=== PATIENT | female | born 1935 | race Caucasian/White ===

== ENCOUNTER 2023-09-05 22:52 | Observation (INO) | payer OTHER, SELFPAY ==
[2023-09-05 16:48] VITALS: BMI 24.9
[2023-09-05 16:56] VITALS: BP 143/70
--- NOTE | 2023-09-05 18:42 | ED.GENMED ---
History of Present Illness
General
Chief Complaint: Fall
Source: patient
Exam Limitations: none
Time Seen by Provider: 09/05/23 18:14
History of Present Illness
History of Present Illness:
This is a 87 year old female that comes in with c/o fall. Josias that yesterday she fell in the bedroom between the bed and the end table. States that she hit the right rib area pretty hard. States that she also fell in the bathroom last night. States
that she just losses her balance. States that she must have laid on the floor most of the night as she was unable to get up. States that she finally made it to the bed. Denies any fever, chills, chest pain, SOB, abd pain, nausea, vomiting, diarrhea,
headache, dizziness, urinary burning.
Past History
Past History
ED Past Medical History: None; Negative Asthma, HTN, Hypercholesterolemia or NIDDM
ED Past Surgical History: Gynecological (Tubal) and Other (Brain aneurysm with shunt)
Social History
Tobacco: Non-smoker
Alcohol: Occasional
Drug: None
Personal:
Living: alone
Review of Systems
Review of Systems
All Other Systems: ROS reviewed and negative except as documented in HPI and ROS
Constitutional: Reports no symptoms; Denies fever or chills
EENT: Reports no symptoms
Respiratory: Reports no symptoms; Denies cough or trouble breathing
Cardiac: Reports no symptoms; Denies chest pain
ABD/GI: Reports no symptoms; Denies abdominal pain, nausea, vomiting or diarrhea
: Reports no symptoms; Denies dysuria, frequency or urgency
Musculoskeletal: Reports other (Right sided lower rib pain)
Skin: Reports no symptoms
Neurological: Reports no symptoms; Denies dizzy or headache
Psychiatric: Reports no symptoms
Phy Exam
General Physical Exam
General Presentation: no apparent distress
General age: appears stated age
General Skin: warm and dry
General Habitus: elderly
General Mental: alert
General Hydration: dry mucous membranes
ENT Exam
ENT Exam: TM's normal, pharynx normal and neck supple
Eye Exam
Eye Exam: EOMI
Cardiovascular Exam
Cardiovascular Exam: regular rate/rhythm, no edema and normal peripheral pulses
Pulmonary Exam
Pulmonary Exam: no respiratory distress, no rhonchi, no wheezing, no cough and other (Rales at bases)
Gastrointestinal Exam
Gastrointestinal Exam: normal bowel sounds, soft, no organomegaly, no pulsatile mass, non distended and tender (Slight tenderness RUQ with palpation)
Musculoskeletal Exam
Musculoskeletal Exam: full ROM, no edema and other (Right lower rib tenderness with palpation, Negative for cervical neck or shoulder tenderness with palpation. Negative discomfort with flexion of the knee's, inversion or eversion. )
Skin Exam
Skin Exam: normal color, warm/dry, no rash, no petechia and other (abrasion right knee)
Psychiatric Exam
Psychiatric Exam: normal mood/affect
Course
Orders/Labs/Results
Orders:
Orders
09/05/23 18:40
Acetaminophen [Tylenol] 1,000 mg PO NOW STA
Ribs, Right 3 View W/PA Chest [CR Ribs-right 3 Vw W/pa Chest*] Urgent
Comment:
Reason For Exam: fall, rib pain
09/05/23 18:41
CT Head W/o Iv Contrast Urgent
Comment:
Reason For Exam: falls
0.9% Sodium Chloride 500 ml [Nss] 500 ml IV BOLUS
09/05/23 19:17
CPK [Creatine Phosphokinase] Urgent
Complete Blood Count/With Diff Urgent
Comprehensive Metabolic Panel Urgent
09/05/23 20:36
Urinalysis Reflex To Culture Urgent
09/05/23 20:43
0.9% Sodium Chloride 500 ml [Nss] 500 ml IV BOLUS
09/05/23 21:02
COVID-19 Antigen Urgent
Source: Nasal Swab
Abnormal Lab Results
09/05/23 09/05/23
19:17 21:02
RBC 3.62 L 10^6/uL
(4.20-5.40)
Hgb 11.9 L g/dL
(12.0-16.0)
Hct 34.1 L %
(37.0-47.0)
MCH 32.9 H pg
(27.0-31.0)
Absolute Lymphs (auto) 1.1 L 10^3/uL
(1.2-3.4)
Absolute Monos (auto) 1.0 H 10^3/uL
(0.1-0.6)
Lymphocytes % 12.8 L %
(20.5-51.1)
Monocytes % 11.5 H %
(1.7-9.3)
BUN 24 H mg/dl
(7-17)
Glucose 124 H mg/dl
(70-99)
Creatine Kinase 798 H U/L
(30-135)
SARS-CoV-2 Antigen Positive A
(Negative)
09/05/23 19:17
09/05/23 19:17
H/H slightly low. Dehydration. Glucose nonfasting CPK elevation. Positive for COVID.
Vital Signs
Initial and Last Documented VS:
Initial Vital Signs
Temp Pulse BP Pulse Ox
98.8 F 83 143/70 95
09/05/23 16:56 09/05/23 16:56 09/05/23 16:56 09/05/23 16:56
Last Documented Vital Signs
Temp Pulse BP Pulse Ox
98.8 F 83 143/67 96
09/05/23 16:56 09/05/23 16:56 09/05/23 19:17 09/05/23 19:45
MDM/Problems Addressed
Differential Diagnosis Includes:
Frequent falls, UTI, Rhabdo
MDM/Problems Addressed:
This is a 87 year old female that comes in with c/o falls. State that she fell in the BR and then again in her bedroom. States that she was in between her bed and the night stand and hit the right lower ribs. State that this is the only pain that
she has. Patient was unable to get up and laid on the floor and at some point through the night she got into bed.
Will check labs, CT head. Rib series and medicate for pain.
Back into see patient and family. Explained that her blood work shows that she is dehydrated. CPK is elevated. Got patient OOB to the BR and she was very unsteady on her feet. States that she just feels weak. Will get Urine, check COVID. Family
states that this is not how she normally walks. If all negative will keep for weakness.
Into see patient and family again and explained that she is positive for COVID. Hospitalist notified about admission.
Chronic conditions affecting care:
NA
Acute Exacerbation and/or Progression of Chronic Illness:
NA
*Radiology
Radiology exam reviewed: radiology read reviewed (CT head-NO acute intracranial abnormality. Stable size of the ventricular systemt compared to the head CT from 04/23/2014. Some progession of chronic ischemic white matter changes. Chest and ribs-No
clear evident for an acute displaced right rib fracture)
*Pulse Oximetry
Patient hypoxic: no
*EKG
Interpreted by ED Provider?: NA
Rate: EKG- N/A
*Powder Line Repairer Interpretation
Rate: Powder Line Repairer- N/A
*Critical Care Note
Total Time (30-74mins, 75-104mins- exclusive of procedures): Not Applicable
ED Attending Note
-
Portions of this chart may have been created with voice recognition software.� Occasional wrong word or��sound alike� substitutions may have occurred due to the inherent limitations of voice recognition software.
Discharge Plan
Departure
Patient Disposition: Admit
Date of Disposition: 09/05/23
Time of Disposition: 21:37
Admit to: Med/Surg
Presentation/result/management discussed w/ accepting MD/DO: Hospitalist
Patient with high blood pressure during this ER visit?: Yes
Condition: Good
Discharge Problem:
Weakness, COVID
Referrals:
Chika Huntley MD [Family Provider] -
Interventions
Interventions:
*Risk Screen - Suicide Last Done: 09/05/23 20:24
*General Assessment Last Done: 09/05/23 20:24
*Neglect/Abuse Screening Last Done: 09/05/23 20:24
ED- Fall Risk Assessment Last Done: 09/05/23 20:22
*ED COVID-19 Vaccine History Last Done: 09/05/23 20:24
ED-Musculoskeletal Assessment Last Done: 09/05/23 20:22
ED- Neurological Assessment Last Done: 09/05/23 20:22
ED-Skin Assessment Last Done: 09/05/23 20:22
Discharge Date and Time
Print Language: SURINAMESE
[2023-09-05] MEDS: TYLENOL 1000 MG PO (19:02)
[2023-09-05] MEDS: NSS 500 IV ×2 (19:05→21:07)
[2023-09-05 19:17] VITALS: BP 143/67
[2023-09-05 19:23] LABS: % Basophils 0.8 % (0-2); % Eosinophils 0.7 % (0-6); % Immature Granulocytes 0.4 % (0-0.5); % Lymphocytes 12.8 % (20.5-51.1); % Monocytes 11.5 % (1.7-9.3); % Neutrophils 73.8 % (42.2-75.2); Absolute Basophils 0.1 10^3/uL (0-0.2); Absolute Eosinophils 0.1 10^3/uL (0-0.7); Absolute Lymphocytes 1.1 10^3/uL (1.2-3.4); Absolute Neutrophils 6.3 10^3/uL (1.4-6.5); Hematocrit 34.1 % (37.0-47.0); Hemoglobin 11.9 g/dL (12.0-16.0); Mean Corp Hgb Conc. 34.9 g/dL (33.0-37.0); Mean Corpuscular Hgb 32.9 pg (27.0-31.0); Mean Corpuscular Volume 94.2 fL (81.0-99.0); Mean Platelet Volume 9.4 fL (7.4-10.4); Nucleated Red Blood Cells % 0 %; Platelet Count 180 10^3/uL (130-400); Red Blood Cell Count 3.62 10^6/uL (4.20-5.40); Red Cell Dist. Width 12.5 % (11.5-14.5); White Blood Cell Count 8.5 10^3/uL (4.8-10.8)
[2023-09-05 19:39] LABS: ALT (SGPT) 20 U/L (0-35); AST (SGOT) 33 U/L (14-36); Albumin 4.3 g/dl (3.5-5.0); Alkaline Phosphatase 80 U/L (38-126); Blood Urea Nitrogen 24 mg/dl (7-17); Calcium 9.4 mg/dl (8.4-10.2); Carbon Dioxide 28 mmol/L (22-30); Chloride 101 mmol/L (98-107); Creatine Phosphokinase 798 U/L (30-135); Glucose 124 mg/dl (70-99); Potassium 3.9 mmol/L (3.5-5.1); Sodium 136 mmol/L (135-145); Total Bilirubin 0.5 mg/dl (0.2-1.3); Total Protein 7.2 g/dl (6.3-8.2); eGFR > 60.00
[2023-09-05 21:16] LABS: COVID-19 Antigen Positive (Negative)
--- NOTE | 2023-09-05 22:27 | HPS.HSE ---
Family Physician
-
Family Physician: Chika Huntley
Chief Complaint
-
fall
History of Present Illness
87-year-old female past medical history of dementia, anxiety/depression, hyperlipidemia, presenting with fall. Yesterday she fell in the bedroom and hit the right rib area pretty hard. He also fell in the bathroom last night. She thinks that she
may have laid on the floor most the night as she was unable to get up. She finally made it to the bed. She developed slight cough this morning. She has a little shortness of breath. She denies any fevers or chills, chest pain, abdominal pain,
nausea vomiting or diarrhea, headache, dizziness or urinary symptoms.
She drinks alcohol occasionally.
Medical History
Past Medical History
Past Medical History: Reports Other (dementia, anxiety/depression, hyperlipidemia,)
Past Surgical History: Reports None
Social History
Tobacco: Non-smoker
Alcohol: Occasional
Drug: None
Family History
Family History: Not pertinent
Allergies / Home Medications
Allergies reflects when Allergies were last updated in riskmethods.
Home Medications with original date entered in riskmethods
Allergy/Medication List:
Allergies
Allergy/AdvReac Type Severity Reaction Status Date / Time
No Known Allergies Allergy Unverified 07/21/19 15:35
Home Medications
aspirin 325 mg tablet 325 mg PO DAILY 09/05/23
buspirone 10 mg tablet 10 mg PO BID 09/05/23
cholecalciferol (vitamin D3) 25 mcg (1,000 unit) tablet 25 mcg PO DAILY 09/05/23
diphenhydramine 25 mg-acetaminophen 500 mg tablet (Tylenol PM Extra Strength) 1 tab PO HS 09/05/23
donepezil 5 mg tablet 5 mg PO HS 09/05/23
escitalopram oxalate 10 mg tablet 10 mg PO DAILY 09/05/23
therapeutic multivitamin 1 tab PO DAILY 09/05/23
Review of Systems
-
History Source: Patient
A 12 point ROS was completed and negative except as noted: Yes
Constitutional: Reports No Symptoms
EENT: Reports No Symptoms
Respiratory: Reports No Symptoms
Cardiac: Reports No Symptoms
Abdomen/GI: Reports No Symptoms
: Reports No Symptoms
Musculoskeletal: Reports No Symptoms
Skin: Reports No Symptoms
Neurological: Reports No Symptoms
Endocrine: Reports No Symptoms
Hematologic/Lymphatic: Reports No Symptoms
Psych: Reports No Symptoms
Physical Exam
Vital Signs
Vital Signs
Temp Pulse BP Pulse Ox
98.8 F 83 143/67 96
09/05/23 16:56 09/05/23 16:56 09/05/23 19:17 09/05/23 19:45
Physical Exam
General: Well Developed, Well Nourished and No Apparent Distress
HEENT: NormoCephalic, Moist mucous membranes and Atraumatic
Respiratory: Clear
Cardiac: S1/S2 and Regular Rhythm; No Murmur or Rub
GI: Soft, Non Tender, Non Distended and Normal Bowel Sounds; No Organomegaly
Rectal: Deferred by Provider
Musculoskeletal: No Clubbing, No Cyanosis and No Edema
Skin: No Rash
Neuro: Nonfocal/grossly intact
Laboratory Results
-
09/05/23 19:17
09/05/23 19:17
Laboratory Results
Total Bilirubin 0.5 mg/dl (0.2-1.3) 09/05/23 19:17
AST 33 U/L (14-36) 09/05/23 19:17
ALT 20 U/L (0-35) 09/05/23 19:17
Alkaline Phosphatase 80 U/L (38-126) 09/05/23 19:17
Data Reviewed
-
Lab Data: Labs Reviewed by me
Old Records: Reviewed
Impression/Plan
-
IMPRESSION:
PLAN:
# Ambulatory dysfunction/weakness/falls secondary to COVID
-CT head shows no acute abnormality
-CT ribs shows no evidence of rib fracture
-Not hypoxic
-PT/OT
# Rhabdomyolysis
-CK of 700
-IV fluids
Dementia
-Continue donepezil
Anxiety/depression
-Continue Lexapro, buspirone
Hyperlipidemia
DNR/DNI
DVT prophylaxis�heparin
Regular diet
[2023-09-05 23:46] VITALS: BP 158/69
[2023-09-05 23:48] VITALS: BMI 24.2
[2023-09-06] MEDS: NSS 1000 IV ×2 (00:06→13:14)
--- NOTE | 2023-09-06 01:01 | PTCARENOTE ---
Patient arrived from the ED via stretched at approximately 2330. Patient ambulated from stretcher to bed x1 assist - gait unsteady. Patient AAOx3, forgetful. VSS as documented. Assessment as documented. Patient oriented to room. Bed in lowest
position. Bed alarm in place for patient safety. Call castillo within reach.
[2023-09-06 01:52] LABS: Urine Albumin Negative (Neg - Trace); Urine Bilirubin Negative (Negative); Urine Character Clear (Clear); Urine Color Yellow; Urine Glucose Negative (Negative); Urine Ketone Negative (Negative); Urine Leukocyte Trace (Negative); Urine Nitrite Negative (Negative); Urine Occult Blood Negative (Negative); Urine Urobilinogen Negative (Neg - 1+)
[2023-09-06 02:18] LABS: Urine Bacteria Few (Negative); Urine Red Blood Cell 0-2 /HPF (0-2)
[2023-09-06 07:10] VITALS: BP 154/78
[2023-09-06 08:46] LABS: % Basophils 0.7 % (0-2); % Eosinophils 3.6 % (0-6); % Immature Granulocytes 0.4 % (0-0.5); % Lymphocytes 19.3 % (20.5-51.1); % Monocytes 12.7 % (1.7-9.3); % Neutrophils 63.3 % (42.2-75.2); Absolute Basophils 0.1 10^3/uL (0-0.2); Absolute Eosinophils 0.3 10^3/uL (0-0.7); Absolute Lymphocytes 1.4 10^3/uL (1.2-3.4); Absolute Monocytes 0.9 10^3/uL (0.1-0.6); Absolute Neutrophils 4.6 10^3/uL (1.4-6.5); Hematocrit 35.1 % (37.0-47.0); Mean Corp Hgb Conc. 34.2 g/dL (33.0-37.0); Mean Corpuscular Hgb 32.8 pg (27.0-31.0); Mean Corpuscular Volume 95.9 fL (81.0-99.0); Mean Platelet Volume 9.7 fL (7.4-10.4); Nucleated Red Blood Cells % 0 %; Platelet Count 176 10^3/uL (130-400); Red Blood Cell Count 3.66 10^6/uL (4.20-5.40); Red Cell Dist. Width 12.6 % (11.5-14.5); White Blood Cell Count 7.3 10^3/uL (4.8-10.8)
[2023-09-06 09:05] LABS: ALT (SGPT) 19 U/L (0-35); AST (SGOT) 33 U/L (14-36); Albumin 3.8 g/dl (3.5-5.0); Alkaline Phosphatase 75 U/L (38-126); Blood Urea Nitrogen 18 mg/dl (7-17); Calcium 8.8 mg/dl (8.4-10.2); Carbon Dioxide 23 mmol/L (22-30); Chloride 108 mmol/L (98-107); Estimated Creatinine Clearance 48 ml/min; Glucose 99 mg/dl (70-99); Potassium 3.9 mmol/L (3.5-5.1); Sodium 141 mmol/L (135-145); Total Bilirubin 0.5 mg/dl (0.2-1.3); Total Protein 6.6 g/dl (6.3-8.2); eGFR > 60.00
[2023-09-06] MEDS: VITAMIN D3 (cholecalciferol) 25 MCG PO (09:22)
[2023-09-06] MEDS: BUSPAR 10 MG PO ×2 (09:22→20:45)
[2023-09-06] MEDS: HEPARIN 5000 UNITS SC ×2 (09:22→20:45)
[2023-09-06] MEDS: LEXAPRO 10 MG PO (09:22)
[2023-09-06 12:27] VITALS: PULSE 71; O2SAT 97
--- NOTE | 2023-09-06 13:32 | CM ---
Patient spoke with CM on phone due to COVID restrictions. Patient stated that she is living alone in a 2 story home. Patient stays on the first floor. Patient PCP is Dr. Huntley's office, but she sees a PA- can not remember name. Patient also uses
the [facility] in [place]. Patient stated that she has children locally but they work and she would want to go home alone. CM reviewed options of VN and patient is intrested but wanted to wait until tomorrow to clarify options. PT/OT recommendation is
home with VN vs SNF. Patient is not interested in SNF at this time.CM will continue to follow for discharge planning needs.
Plan;home with VN vs SNF.
--- NOTE | 2023-09-06 13:59 | W.PN.HOSP.TC ---
Today's Communication/Plan
-
Continue IVF--PT consult regarding discharge plans
Assessment / Plan
Assessment / Plan
87-year-old female
Ambulatory dysfunction/weakness/falls
-CT head shows no acute abnormality
-CT ribs shows no evidence of rib fracture
-PT/OT
# Rhabdomyolysis
-CK of 700
-Continue IV fluids
# COVID
-Respiratory precautions in place--no need for additional treatment
Dementia
-Continue donepezil
Anxiety/depression
-Continue Lexapro, buspirone
DVT prophylaxis�heparin
DNR/DNI
Rib pain: Continue Tylenol
Anticipated Discharge: 24 - 48 hours
Subjective/Interval History
-
Date of Service: September 06, 2023
Patient is alert and oriented. She did not have any lightheadedness, cough, shortness of breath, loss of consciousness, fever or chills overnight. Rib pain has improved.
Objective Data
-
Labs:
Laboratory Results
09/06/23
08:03
WBC 7.3
Hgb 12.0
Hct 35.1 L
Plt Count 176
Sodium 141
Potassium 3.9
Chloride 108 H
Carbon Dioxide 23
BUN 18 H
Creatinine 0.8
Glucose 99
Calcium 8.8
Total Bilirubin 0.5
AST 33
ALT 19
Alkaline Phosphatase 75
Vital Signs:
Vital Signs
Temp Pulse Resp BP Pulse Ox
98.2 F 70 18 154/78 97
09/06/23 07:10 09/06/23 07:10 09/06/23 07:10 09/06/23 07:10 09/06/23 08:00
I&O
09/05/23 09/06/23 09/07/23
06:59 06:59 06:59
Intake Total 800 / 800
Balance 800 / 800
Review of Systems
-
History Source: Patient
All other systems: Reviewed and negative
Physical Exam
-
General: Well Developed and No Apparent Distress
HEENT: Normocephalic and Atraumatic
Respiratory: Clear to Auscultation
Cardiac: Regular Rhythm and S1/S2
GI: Soft, Nontender and Nondistended
Genito-urinary: No Costovertebral Tender
Musculoskeletal: No Clubbing, No Cyanosis, No Edema and Other (Abrasion on left knee, mild tenderness of right leg)
Skin: Warm
Neuro: Awake, Alert and Oriented
--- NOTE | 2023-09-06 14:28 | W.PN.UPDATE ---
Update Note
Progress Note Update
I saw and evaluated the patient. I reviewed the resident�s note and agree with findings and plan as documented in the resident�s note.
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 It all started with feeling weak, fatigued and a lot of myalgias and arthralgias. She is positive for COVID-19. Suspect all nonspecific flu symptoms of COVID-19.
She currently has no shortness of breath, hypoxia or pneumonia. Apart from age 82 plus, She has no other chronic medical conditions and I would hold on Paxlovid. No history of syncope. Sinus rhythm.
Continue with hydration and symptomatic treatment. Obtain PT OT eval.
DC planning-patient likes to go home rather than to rehab
[2023-09-06 15:20] VITALS: BP 156/77
[2023-09-06 16:20] VITALS: BP 156/77; PULSE 69; O2SAT 97
[2023-09-06] MEDS: TYLENOL 500 MG PO ×2 (16:37→21:09)
[2023-09-06] MEDS: BENADRYL 25 MG PO (21:08)
[2023-09-06] MEDS: ARICEPT 5 MG PO (21:08)
[2023-09-06 23:22] VITALS: BP 149/70
[2023-09-07] MEDS: NSS 1000 IV (00:53)
[2023-09-07 07:20] VITALS: BP 170/75
[2023-09-07] MEDS: HEPARIN 5000 UNITS SC (08:37)
[2023-09-07] MEDS: LEXAPRO 10 MG PO (08:37)
[2023-09-07] MEDS: BUSPAR 10 MG PO (08:37)
[2023-09-07] MEDS: VITAMIN D3 (cholecalciferol) 25 MCG PO (08:37)
[2023-09-07 08:50] VITALS: BP 164/77
--- NOTE | 2023-09-07 10:48 | CM ---
Patient completed OBS/SANCHEZ form and signed copy placed on chart.
--- NOTE | 2023-09-07 11:17 | CM ---
CM reviewed patient's chart. CM introduced self and role. Patient signed SANCHEZ and copy given to patient, original placed on chart. Patient is declining any additional services when discharged to home. She declined VN. CM asked if any one would be in
the home for additional support/help. Patient stated she didn't think that was needed. She confirmed that one of her children will be called and will provide Elana with transportation once she is discharged from the hospital.
--- NOTE | 2023-09-07 13:19 | W.DS.TRANS ---
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
-
Discharge Instructions:
Discharge Diagnosis/Procedures COVID 19 infection with flu like symptoms but no
respiratory illness.
Diet Regular
Activity As tolerated
Driving Restrictions Not until seen by your Dr
Bathing Restrictions None
Other Services VN
Instructions:
Stand-Alone Forms:
Changes to Home Medications: No
Discharge Medications:
DC Medications w/original date entered in [facility]
aspirin 325 mg tablet 325 mg PO DAILY Pain 09/05/23
buspirone 10 mg tablet 10 mg PO BID Anxiety 09/05/23
cholecalciferol (vitamin D3) 25 mcg (1,000 unit) tablet 25 mcg PO DAILY Supplement 09/05/23
diphenhydramine 25 mg-acetaminophen 500 mg tablet (Tylenol PM Extra Strength) 1 tab PO HS Sleep 09/05/23
donepezil 5 mg tablet 5 mg PO HS Neurological Condition 09/05/23
escitalopram oxalate 10 mg tablet 10 mg PO DAILY Mental Health/Anxiety 09/05/23
therapeutic multivitamin 1 tab PO DAILY Supplement 09/05/23
acetaminophen 500 mg tablet (Tylenol Extra Strength) 500 mg PO Q6HPRN PRN mild pain #1 tab 09/07/23
Home Medication Changes
Pending Results: No
--- NOTE | 2023-09-07 13:19 | W.PN.HOSP.TC ---
Today's Communication/Plan
-
DC
Assessment / Plan
Assessment / Plan
87-year-old female
Ambulatory dysfunction/weakness/falls Suspect secondary to COVID-19 infection[address]
-CT head shows no acute abnormality
-CT ribs shows no evidence of rib fracture
-PT/OT Eval noted-patient wants to go home with home care than rehab.
# Mild non traumatic Rhabdomyolysis
-CK of 700
-DC further IV fluids
# COVID19 infection with flu like symtoms only .
- notes respiratory illness. Not hypoxic not short of breath. No pneumonia. Apart from age of 80s no other risk factors. Holding on Paxlovid.
-Respiratory precautions in place-
# Elevated BP - Blood pressure readings not under goal for her age but mostly in 150s on average. Not known to have hypertension. Not on medications prior. Advised her to return to the PCP next week and still persistent issues to consider
treatment at that point.
Dementia
-Continue donepezil
Anxiety/depression
-Continue Lexapro, buspirone
DVT prophylaxis�heparin
DNR/DNI
Rib pain: Continue Tylenol
Medically stable for discharge.
Discussed with daughter Jessica on phone regarding diagnosis and treatment.
Anticipated Discharge: Today
Subjective/Interval History
-
Date of Service: September 07, 2023
Patient feeling improved. Still has some myalgias. She feels okay on the legs. She does not want to go to rehab. She asked to go home with the [place] and. She is going to take the help of her daughter for the next couple of days. She lives alone.
Denies any sore throat, cough, shortness of breath or chest pain.
Tolerating diet
Objective Data
-
Vital Signs:
Vital Signs
Temp Pulse Resp BP Pulse Ox
97.8 F 72 16 164/77 98
09/07/23 07:20 09/07/23 07:20 09/07/23 07:20 09/07/23 08:50 09/07/23 07:20
I&O
09/06/23 09/07/23 09/08/23
06:59 06:59 06:59
Intake Total 800 / 800 1640 / 1640
Balance 800 / 800 1640 / 1640
Review of Systems
-
Constitutional: Denies Fever
Neuro: Denies Dizzy
Physical Exam
-
Respiratory: Non Labored Respirations; Negative Wheezes, Crackles or Accessory Resp Muscle Use
Cardiac: Regular Rhythm and S1/S2; Negative Tachycardic
Neuro: AO x 3
Psych: Calm; Negative Confused or Agitated
[2023-09-07] MEDS: TYLENOL 500 MG PO (14:39)
[2023-09-07 15:01] VITALS: BP 139/64
--- NOTE | 2023-09-07 16:49 | W.PN.HOSP.TC ---
Today's Communication/Plan
-
Discontinue IV fluids--discharge to home
Assessment / Plan
Assessment / Plan
87-year-old female
Ambulatory dysfunction/weakness/falls Suspect secondary to COVID-19 infection[address]
-CT head shows no acute abnormality
-CT ribs shows no evidence of rib fracture
-PT/OT Eval noted-patient wants to go home without VN.
# Mild non traumatic Rhabdomyolysis
-CK of 700
-DC further IV fluids
# COVID19 infection with flu like symtoms only .
- notes respiratory illness. Not hypoxic not short of breath. No pneumonia. Apart from age of 80s no other risk factors. Holding on Paxlovid.
-Respiratory precautions in place-
# Elevated BP - Blood pressure readings not under goal for her age but mostly in 150s on average. Not known to have hypertension. Not on medications prior. Advised her to return to the PCP next week and still persistent issues to consider
treatment at that point.
Dementia
-Continue donepezil
Anxiety/depression
-Continue Lexapro, buspirone
DVT prophylaxis�heparin
DNR/DNI
Rib pain: Continue Tylenol
Medically stable for discharge.
Anticipated Discharge: Today
Subjective/Interval History
-
Date of Service: September 07, 2023
Patient is feeling good. Does not complain of any cough or shortness of breath. Was able to walk during the past day, did not feel any dizziness or lightheadedness.
Objective Data
-
Vital Signs:
Vital Signs
Temp Pulse Resp BP Pulse Ox
98.2 F 65 16 139/64 94
09/07/23 15:01 09/07/23 15:01 09/07/23 15:01 09/07/23 15:01 09/07/23 15:01
I&O
09/06/23 09/07/23 09/08/23
06:59 06:59 06:59
Intake Total 800 / 800 1640 / 1640
Balance 800 / 800 1640 / 1640
Review of Systems
-
History Source: Patient
All other systems: Reviewed and negative
Physical Exam
-
General: Well Developed and Comfortable
HEENT: Normocephalic and Atraumatic
Respiratory: Clear to Auscultation
Cardiac: Regular Rhythm and S1/S2
GI: Soft, Nontender and Nondistended
Musculoskeletal: No Edema and Other (Small abrasion on left knee)
Neuro: Awake, Alert, Oriented and AO x 3
Psych: Calm
--- NOTE | 2023-09-07 17:32 | W.DCSUMMARY ---
Discharge Summary
Discharge Data
Date of Admission: 09/05/23
Date of Discharge: 09/07/23
-
Pending Results: No
Hospital Course
Patient is a 87 year old female that presented with 2 episodes of fall the day prior to admission. One episode was falling in the bedroom between the bed and the end table and another was in the bathroom. She mentioned she fell on her chest and hit
her rib. She laid on the floor for a couple of hours before she was able to get up. She denied any loss of consciousness, fever, chills, chest pain, nausea, vomiting, diarrhea, headache or lightheadedness. She did mention recent coughs but did not
have any SOB. On admission, she was found to have an elevated CK and tested positive for COVID. Patient was admitted for management of weakness, rhabdomyolysis and COVID.
# Ambulatory dysfunction/weakness/falls: Suspected to be secondary to COVID infection. Head CT did not show any acute abnormality. CXR showed no evidence of rib fracture. Daily PT/OT evaluation was done. Weakness improved and gait was steady prior
to discharge. Patient refused rehab and would like to be discharged to home.
# Mild non-traumatic Rhabdomyolysis: Initial CK was elevated at 700. Patient received IV fluids during the entirety of stay. Tylenol was given for rib pain.
# COVID infection with flu like symptoms: Respiratory precautions were placed. Patient was not hypoxic or short of breath during stay. No evidence of pneumonia on CXR. Did not require Paxlovid.
# Elevated BP: Blood pressure readings were not under goal for her age but mostly in 150s on average. Patient was not known to have hypertension and did not take any prior medications. She was advised to follow up with PCP next week for blood
pressure management.
# Dementia: No changes as prior to admission. Donepezil was continued.
# Anxiety/depression: No changes as prior to admission. Lexapro and buspirone were continued.
Patient is in good clinical condition and is medically stable for discharge to home. Diagnosis and treatment was discussed with daughter Jessica on phone.
Discharge Plan
-
Patient Disposition: Home with Home Care
Discharge Diagnosis/Procedures: COVID 19 infection with flu like symptoms but no respiratory illness.
Condition: Good
Diet: Regular
Activity: As tolerated
Driving Restrictions: As prior to admission
Bathing Restrictions: None
Referrals:
Chika Huntley MD [Family Provider] - in less than 1 week
Prescriptions:
New
acetaminophen [Tylenol Extra Strength] 500 mg Tablet
500 mg PO Q6HPRN PRN (Reason: mild pain) Qty: 1 0RF
Continued
donepezil 5 mg tablet
5 mg PO HS
aspirin 325 mg Tablet
325 mg PO DAILY
therapeutic multivitamin Tablet
1 tab PO DAILY
buspirone 10 mg tablet
10 mg PO BID
diphenhydramine-acetaminophen [Tylenol PM Extra Strength] 25-500 mg Tablet
1 tab PO HS
escitalopram oxalate 10 mg tablet
10 mg PO DAILY
cholecalciferol (vitamin D3) 25 mcg (1,000 unit) Tablet
25 mcg PO DAILY
Discharge Orders:
Discharge Patient (As Directed); Ordered 09/07/23
Ordered By: Gopi Chapman
Discharge Date and Time
Discharge Date/Time: 09/07/23 15:48
Print Language: SLOVENIAN
== END 2023-09-07 15:48 | disposition home or self-care (01) ==
LOC: 2 NORTH 22:52
PROVIDERS: Clinical Nurse Specialist Family Health; ADMITTING PHYSICIAN Hospitalist; ATTENDING PHYSICIAN Internal Medicine; EMERGENCY PHYSICIAN Emergency Medicine; FAMILY PHYSICIAN Internal Medicine
DX: U07.1 COVID-19 (principal); R07.81 Pleurodynia; E86.0 Dehydration; R74.8 Abnormal levels of other serum enzymes; I67.82 Cerebral ischemia; R29.6 Repeated falls; F03.94 Unspecified dementia, unspecified severity, with anxiety; F03.93 Unspecified dementia, unspecified severity, with mood disturbance; W01.190A Fall on same level from slipping, tripping and stumbling with subsequent striking against furniture, initial encounter; Y93.01 Activity, walking, marching and hiking; Y92.003 Bedroom of unspecified non-institutional (private) residence as the place of occurrence of the external cause; E78.5 Hyperlipidemia, unspecified; M62.82 Rhabdomyolysis; Z66 Do not resuscitate; Z79.82 Long term (current) use of aspirin
CPT/HCPCS: 70450; 71101; 80053; 81003; 81015; 82550; 85025; 87811; 96360; 96361; 97163; 97167; 97530; 99285; G0378